=== PATIENT | female | born 1960 | race Two or more races ===

== ENCOUNTER 2025-05-26 10:20 | Day surgery (SDC) | payer MEDICAID ==
[2025-05-24 13:13] LABS: Urine Bacteria None Seen /hpf (None Seen)
[2025-05-24 13:22] LABS: Basophils # (auto) 0.1 10 ^3/uL (0-0.2); Eosinophils # (auto) 0.1 10 ^3/uL (0-0.8); Eosinophils % (auto) 1.5 % (0.0-7.0); Hematocrit 39.9 % (36.0-46.0); Hemoglobin 14.1 g/dL (12.2-16.2); Lymphocytes # (auto) 1.9 10 ^3/uL (0.4-5.4); Lymphocytes % (auto) 27.8 % (10.0-50.0); Mean Corpuscular Hemoglobin 31.1 pg (28.0-32.0); Mean Corpuscular Hgb Conc. 35.3 g/dL (32.0-36.0); Monocytes # (auto) 0.5 10 ^3/uL (0-1.3); Neutrophils # (auto) 4.3 10 ^3/uL (1.6-8.6); Neutrophils % (auto) 62.7 % (37.0-80.0); Platelet Count (auto) 326 10^3/uL (140-450); Red Blood Cells 4.53 10^6/uL (4.0-5.20); Red Cell Distribution Width 12.9 % (11.8-14.3); White Blood Cell 6.9 10^3/uL (4.4-10.8)
[2025-05-24 13:27] LABS: Urine Blood Negative /uL (Negative); Urine Clarity Clear (Clear); Urine Color Colorless (Yellow); Urine Protein, UAD Negative (Negative); Urine Specific Gravity 1.004 (1.001-1.035); Urine Squamous Epithelial Cell None Seen /hpf (<5); Urine Urobilinogen Normal (Negative); Urine WBC 1 /HPF (0-5); Urine pH 6.5 (5.0-9.0)
[2025-05-24 13:32] LABS: INR 0.97 (0.9-1.15); Partial Thromboplastin Time 28.5 SEC (24.5-34.5); Prothrombin Time 10.3 sec (9.3-11.8)
[2025-05-24 14:13] LABS: Alanine Aminotransferase 24 U/L (7-40); Alkaline Phosphatase 77 U/L (46-116); Anion Gap 9 (5-15); Aspartate Aminotransferase 17 U/L (<34); BUN/Creatinine Ratio 15.2 (10.0-20.0); Blood Urea Nitrogen 10 mg/dL (9-23); Carbon Dioxide 29 mmol/L (20-31); Chloride 104 mmol/L (98-107); Glucose 100 mg/dL (74-106); Sodium 142 mmol/L (136-145); Total Protein 7.5 g/dL (5.7-8.2)
[2025-05-24 14:15] LABS: Bilirubin, Total 0.6 mg/dL (0.2-1.0)
[~2025-05-26] VITALS: Ht 165.1 cm; Wt 79.4 kg
[~2025-05-26 10:20] MED LIST: ATOR20TA PO; CHOLCAP4 PO; HYDR12.59 PO; POLY335015 PO; SEMA2INJ3 SC
[2025-05-26] MEDS ORDERED: ceFAZolin 1GM/50ML 100 ML IV ONE (13:23)
[2025-05-26] MEDS ORDERED: ONDANSETRON HCL 4 MG/2 ML VIAL ONE (13:24)
[2025-05-26] MEDS ORDERED: PROPOFOL 10 MG/ML 20 ML IV ONE (13:24)
[2025-05-26] MEDS ORDERED: fentaNYL CITRATE 100 MCG/2 ML VL ONE (13:24)
[2025-05-26] MEDS ORDERED: DexAMETHasone SOD PHOS 10MG/1ML VIAL INJ ONE (13:24)
[2025-05-26] MEDS ORDERED: GLYCOPYRROLATE 0.2 MG/ML 1ML VIAL ONE (13:24)
[2025-05-26] MEDS ORDERED: ePHEDrine SULFATE 50 MG/ML AMP ONE (13:24)
[2025-05-26] MEDS ORDERED: KETOROLAC TROMETH 30 MG/ML 1ML VIAL ONE (13:24)
[2025-05-26] MEDS ORDERED: MIDAZOLAM HCL 2MG/2ML 2ml VIAL (1mg/ml) ONE (13:24)
[2025-05-26] MEDS ORDERED: HYDROmorphone HCL 2 MG/ML VL/or syr ONE (13:24)
[2025-05-26] MEDS ORDERED: SUGAMMADEX 200mg/2ml Vial (100MG/ML) IV ONE ×2 (13:31→14:54)
[2025-05-26] MEDS ORDERED: ROCURONIUM 10MG/ML 10ML VIAL IV ONE (15:08)
[2025-05-26] MEDS: BUPIVACAINE HCL 0.25% P/F 10 ML VIAL ONE (15:10)
[2025-05-26] MEDS: LIDOCAINE W/ EPINEPHRINE 1% 20ML VIAL ONE (15:10)
[2025-05-26] MEDS ORDERED: POVIDONE IODINE 10 % TOPICAL OINT 30GM TOP ONE (15:26)
[2025-05-26] MEDS ORDERED: ACE3T PO (15:39)
[2025-05-26 15:48] VITALS: TEMP 97.6; O2SAT 100
[2025-05-26] MEDS ORDERED: hydrALAZINE HCL 20 MG/ML VL IV PRN (16:00)
[2025-05-26] MEDS ORDERED: ePHEDrine SULFATE 50 MG/ML AMP IV PRN (16:00)
[2025-05-26] MEDS ORDERED: MIDAZOLAM HCL 2MG/2ML 2ml VIAL (1mg/ml) IV PRN (16:00)
[2025-05-26] MEDS ORDERED: MORPHINE SULFATE 4 MG/ML SYR/VIAL IV PRN (16:00)
[2025-05-26] MEDS ORDERED: HYDROmorphone HCL 2 MG/ML VL/or syr IV PRN (16:00)
--- NOTE | 2025-05-26 16:28 | DVHOP ---
DATE OF SURGERY: 05/26/2025 PREOPERATIVE DIAGNOSIS: Umbilical ventral incisional hernia. POSTOPERATIVE DIAGNOSIS: Umbilical ventral incisional hernia. SURGEON: Wagner Cleveland MD BASE ENGINEER: Emmanuel Henley NP ANESTHESIA: General endotracheal, Dr. Sparks. PROCEDURES: * Partial omentectomy. * Repair of incisional umbilical ventral hernia. DESCRIPTION OF PROCEDURE: Under general endotracheal anesthesia with the patient's skin prepped and draped, a longitudinal incision was in the area of the umbilicus with deviation toward the patient's right around the umbilicus itself. The incision was deepened through adipose tissue. There was a large herniation of omentum which was incarcerated through a defect that measured approximately 3 cm in diameter. Lysis of adhesions was accomplished in order to mobilize the omentum. Partial omentectomy was accomplished and the omentum submitted for histopathologic examination. Subsequently, the remainder of the omentum reduced into the peritoneal cavity, the edges of the defect were grasped with Keshawn clamps and following assurance of no adherent bowel to the undersurface of the anterior abdominal wall, the defect was closed utilizing a #1 double-stranded Prolene suture with interspersed interrupted Tevdek sutures. The wound was irrigated. Hemostasis was accomplished. Subcutaneous tissue was approximated using 2-0 Monocryl suture. Metallic skin daysi used for approximation of skin edges. The patient remained stable throughout the procedure, left the operating room following an accurate needle and sponge count. The patient's daughter, Юлия, was thoroughly informed at [phone]. MD TOBI Bradley/DARRION TID: [id number] RECEIPT: [id number]
[2025-05-26] MEDS: ONDANSETRON HCL 4 MG/2 ML VIAL IV ONE (16:33)
[2025-05-26] MEDS ORDERED: METOCLOPRAMIDE HCL 5MG/ml INJ 2ml VIAL ONE (16:50)
[2025-05-26] MEDS: METOCLOPRAMIDE HCL 5MG/ml INJ 2ml VIAL IV ONE (17:05)
[2025-05-26 17:25] VITALS: BP 131/72; PULSE 97; RESP 12; O2SAT 95
== END 2025-05-26 17:40 | disposition home or self-care (01) ==
LOC: SUR 10:20
PROVIDERS: ATTEND Surgery
DX: K43.0 Incisional hernia with obstruction, without gangrene (principal); K66.0 Peritoneal adhesions (postprocedural) (postinfection); I10 Essential (primary) hypertension; Z98.890 Other specified postprocedural states; Z98.891 History of uterine scar from previous surgery; Z79.899 Other long term (current) drug therapy; Z90.49 Acquired absence of other specified parts of digestive tract
CPT/HCPCS: 36415; 49592; 80053; 81001; 85025; 85610; 85730; 86850; 86900; 86901; 88302; J0690; J1100; J1171; J1885; J2250; J2405; J2704; J2765; J3010; J3490